=== PATIENT | female | born 1965 | race Native Hawaiian/Other Pacific Islander ===

== ENCOUNTER 2019-01-08 18:50 | Emergency (ER) | payer BC ==
[~2019-01-08] VITALS: Ht 154.9 cm; Wt 67.1 kg
[2019-01-08 19:21] LABS: PLATELET COUNT 326 K/uL (152-353)
[2019-01-08 19:46] LABS: POTASSIUM 5.6 mmol/L (3.6-5.2); SODIUM 136 mmol/L (136-145)
[2019-01-08 23:05] VITALS: BP 149/82; TEMP 98.2
== END 2019-01-08 23:05 | disposition home or self-care (01) ==
LOC: ED 18:50
PROVIDERS: Family Medicine
DX: R07.89 Other chest pain (principal)
CPT/HCPCS: 36415; 80053; 82550; 84484; 85027; 85379; 85610; 85730; 93005; 99284

== ENCOUNTER 2020-01-17 16:44 | Emergency (ER) | payer BC ==
[~2020-01-17] VITALS: Ht 154.9 cm; Wt 77.6 kg
[2020-01-17 16:58] VITALS: TEMP 98.7
[2020-01-17 17:48] LABS: PLATELET COUNT 295 K/uL (152-353)
[2020-01-17 17:59] LABS: SODIUM 139 mmol/L (136-145)
[2020-01-17 21:24] VITALS: BP 1143/76
== END 2020-01-17 21:25 | disposition home or self-care (01) ==
LOC: ED 16:44
PROVIDERS: Family Medicine
DX: I20.8 Other forms of angina pectoris (principal); R07.89 Other chest pain; F17.210 Nicotine dependence, cigarettes, uncomplicated
CPT/HCPCS: 80053; 81000; 82550; 84484; 85027; 85379; 93005; 99283

== ENCOUNTER 2020-03-13 12:58 | Outpatient (CLI) | payer BC, OTHER | END 2020-03-13 23:59 | disposition home or self-care (01) | LOC: LAB 12:58 | PROVIDERS: ATTEND Nurse Practitioner Family | DX: R05 Cough (principal); R06.09 Other forms of dyspnea; Z11.59 Encounter for screening for other viral diseases | CPT/HCPCS: 87635; G2023; U0003 ==

== ENCOUNTER 2020-09-29 13:51 | Emergency (ER) | payer OTHER ==
[~2020-09-29] VITALS: Ht 154.9 cm; Wt 79.4 kg
[2020-09-29 13:55] VITALS: TEMP 98.6
[2020-09-29 14:28] LABS: PLATELET COUNT 327 K/uL (152-353)
[2020-09-29 14:35] LABS: POTASSIUM 3.9 mmol/L (3.6-5.2); SODIUM 139 mmol/L (136-145)
[2020-09-29 14:36] LABS: PARTIAL THROMBOPLASTIN TIME 26.3 SECONDS (24.5-33.6)
[2020-09-29 16:20] VITALS: BP 142/78
== END 2020-09-29 16:20 | disposition home or self-care (01) ==
LOC: ED 13:51
PROVIDERS: Hospitalist
DX: R07.89 Other chest pain (principal)
CPT/HCPCS: 36415; 80053; 82550; 83880; 84484; 85027; 85379; 85610; 85730; 96374; 96375; 99284; J1885; J2270; Q9963

== ENCOUNTER 2020-11-09 20:58 | Emergency (ER) | payer OTHER ==
[~2020-11-09] VITALS: Ht 154.9 cm; Wt 85.3 kg
[2020-11-09 22:23] LABS: PLATELET COUNT 375 K/uL (152-353)
[2020-11-09 22:28] LABS: POTASSIUM 4.2 mmol/L (3.6-5.2)
[2020-11-10 00:53] VITALS: BP 165/73; TEMP 98.1
== END 2020-11-10 00:53 | disposition home or self-care (01) ==
LOC: ED 20:58
PROVIDERS: Emergency Medicine Emergency Medical Services
DX: R10.31 Right lower quadrant pain (principal); U07.1 COVID-19
CPT/HCPCS: 80053; 81000; 83690; 85027; 96360; 96375; 99284; J1885; J2270; J2405

== ENCOUNTER 2020-11-17 11:03 | Outpatient (CLI) | payer OTHER ==
[2020-11-17 11:23] LABS: PLATELET COUNT 339 K/uL (152-353)
[2020-11-17 11:52] LABS: POTASSIUM 3.8 mmol/L (3.6-5.2)
== END 2020-11-17 20:11 | disposition home or self-care (01) ==
LOC: LABW 11:03
PROVIDERS: ATTEND Nurse Practitioner Family
DX: E78.5 Hyperlipidemia, unspecified (principal); Z79.899 Other long term (current) drug therapy; E03.9 Hypothyroidism, unspecified
CPT/HCPCS: 36415; 80053; 80061; 81000; 84439; 84443; 85027

== ENCOUNTER 2021-09-29 10:33 | Outpatient (CLI) | payer OTHER | END 2021-09-29 18:56 | disposition home or self-care (01) | LOC: RAD 10:33 | PROVIDERS: ATTEND Family Medicine | DX: R49.0 Dysphonia (principal); R05.9 Cough, unspecified; F17.200 Nicotine dependence, unspecified, uncomplicated; Z80.0 Family history of malignant neoplasm of digestive organs; J31.2 Chronic pharyngitis ==

== ENCOUNTER 2021-12-20 10:38 | Outpatient (CLI) | payer OTHER | END 2021-12-20 18:57 | disposition home or self-care (01) | LOC: RAD 10:38 | PROVIDERS: ATTEND Family Medicine | DX: M25.571 Pain in right ankle and joints of right foot (principal); M79.671 Pain in right foot ==

== ENCOUNTER 2022-07-22 20:19 | Emergency (ER) | payer OTHER ==
[~2022-07-22] VITALS: Ht 154.9 cm; Wt 87.5 kg
[2022-07-22 20:30] VITALS: BP 165/80; TEMP 98.7
== END 2022-07-22 21:30 | disposition home or self-care (01) ==
LOC: ED 20:19
DX: M17.12 Unilateral primary osteoarthritis, left knee (principal)
CPT/HCPCS: 96372; 99283; J1100; J1885

== ENCOUNTER 2022-07-28 10:46 | Outpatient (CLI) | payer OTHER | END 2022-07-28 19:12 | disposition home or self-care (01) | LOC: RAD 10:46 | PROVIDERS: ATTEND Physician Assistant | DX: M79.661 Pain in right lower leg (principal); M25.561 Pain in right knee; M79.604 Pain in right leg ==